=== PATIENT | male | born 1985 | race African-American/Black ===

== ENCOUNTER 2018-08-22 22:08 | Emergency (ER) | payer SELFPAY ==
[2018-08-22 22:15] VITALS: BP 132/79; PULSE 85; TEMP 98.4; BMI 34.0
--- NOTE | 2018-08-22 22:25 | PDOC ---
History of Present Illness - General Chief Complaint: Eye Problem Stated Complaint: EYE PROBLEM Time Seen by Provider: 08/22/18 22:18 History Source: Patient Exam Limitations: No Limitations - History of Present Illness Initial Comments: 08/22/18 22:35 CHIEF COMPLAINT: Eye pain HISTORY OF PRESENT ILLNESS: This is an otherwise healthy 33-year-old male who presents for evaluation of left eye redness, discharge, and photosensitivity after sleeping with a contact lens in the eye. He denies any change in visual acuity, any fever, or any other symptoms. Vital signs on arrival are unremarkable. REVIEW OF SYSTEMS: GENERAL/CONSTITUTIONAL: No fever or chills. No weakness. No weight change. HEAD, EYES, EARS, NOSE AND THROAT: See HPI. HEMATOLOGIC/LYMPHATIC: No anemia, easy bleeding, or history of blood clots. ALLERGIC/IMMUNOLOGIC: No hives or skin allergy. No latex allergy. PHYSICAL EXAM: GENERAL: The patient is awake, alert, and fully oriented, in no acute distress. ENT: Pupils equal, round and reactive to light, extraocular movements intact, sclera anicteric, conjunctiva injected with scant discharge. Neck supple. LUNGS: Clear to auscultation bilaterally. Normal excursion. No respiratory distress or use of accessory muscles. NEUROLOGICAL: Normal speech, normal gait. CN II-XII grossly intact. PSYCH: Normal mood, normal affect. SKIN: Warm, dry, normal turgor, no rashes or lesions noted. Past History - Past Medical History Allergies/Adverse Reactions: Allergies Allergy/AdvReac Type Severity Reaction Status Date / Time No Known Allergies Allergy Verified 08/22/18 22:15 Home Medications: Ambulatory Orders NK [No Known Home Medication] 11/09/16 CVA: No COPD: No - Immunization History Td Vaccination: No (unknown) Immunization Up to Date: Yes - Suicide/Smoking/Psychosocial Hx Smoking Status: No Smoking History: Never smoked Years of Tobacco Use: 0 Have you smoked in the past 12 months: No Number of Cigarettes Smoked Daily: 0 Cigars Per Day: 0 Information on smoking cessation initiated: No Hx Alcohol Use: No Drug/Substance Use Hx: No Substance Use Type: None *Physical Exam - Vital Signs Last Vital Signs Temp Pulse Resp BP Pulse Ox 98.4 F 85 17 132/79 100 08/22/18 22:13 08/22/18 22:13 08/22/18 22:13 08/22/18 22:13 08/22/18 22:13 Moderate Sedation - Procedure Monitoring Vital Signs: Procedure Monitoring Vital Signs Temperature 98.4 F 08/22/18 22:13 Pulse Rate 85 08/22/18 22:13 Respiratory Rate 17 08/22/18 22:13 Blood Pressure 132/79 08/22/18 22:13 O2 Sat by Pulse Oximetry (%) 100 08/22/18 22:13 Medical Decision Making - Medical Decision Making 08/22/18 22:38 A/P: 33-year-old male with likely conjunctivitis after sleeping with a contact lens in. Tetracaine instilled in the left eye and fluorescein dye applied. No corneal abrasion is visible under blue filter light. Will prescribe erythromycin ointment, advised warm compresses. 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 *DC/Admit/Observation/Transfer Diagnosis at time of Disposition: Conjunctivitis Qualifiers: Conjunctivitis type: acute Acute conjunctivitis type: bacterial Laterality: left Qualified Code(s): H10.32 - Unspecified acute conjunctivitis, left eye - Discharge Dispostion Disposition: HOME Condition at time of disposition: Stable Decision to Admit order: No - Referrals Referrals: Ladarius Levin [Primary Care Provider] - - Patient Instructions Printed Discharge Instructions: DI for Conjunctivitis Additional Instructions: -Apply erythromycin ointment to the lower lid every 6 hours without touching tube to lid -Apply warm compresses for 15 minutes 5 times a day -Follow up with ophthalmology if symptoms not improving -Return here for any new or concerning symptoms - Post Discharge Activity
[2018-08-22] MEDS ORDERED: ERYTHROMYCIN 0.5% OPHTHALMIC OINTMENT 3.5 GM TUBE OS ONE (22:33)
[2018-08-22] MEDS ORDERED: ERYTHROMYCIN 0.5% OPHTHALMIC OINTMENT 3.5 GM TUBE ONE (22:36)
== END 2018-08-22 22:42 | disposition home or self-care (01) ==
LOC: JERFT 22:08
DX: H10.32 Unspecified acute conjunctivitis, left eye (principal)
CPT/HCPCS: 99281-25

== ENCOUNTER 2020-01-05 14:39 | Emergency (ER) | payer OTHER ==
[2020-01-05 14:46] VITALS: BP 161/84; PULSE 99; TEMP 98.7; BMI 34.2
--- NOTE | 2020-01-05 14:48 | PDOC ---
Rapid Medical Evaluation Chief Complaint: Injury Time Seen by Provider: 01/05/20 14:46 Medical Evaluation: Allergies Allergy/AdvReac Type Severity Reaction Status Date / Time No Known Allergies Allergy Verified 08/22/18 22:15 Vital Signs Temp Pulse Resp BP Pulse Ox 98.7 F 99 H 18 161/84 100 01/05/20 14:43 01/05/20 14:43 01/05/20 14:43 01/05/20 14:43 01/05/20 14:43 01/05/20 14:47 CC: fell and landed on rt hand Exam: noted edema and tenderness over 4th and 5th mcp Plan: xray Discharge Disposition - Diagnosis Hand injury - Referrals - Patient Instructions - Post Discharge Activity
--- NOTE | 2020-01-05 15:33 | PDOC ---
History of Present Illness - General Chief Complaint: Injury Stated Complaint: RT HAND INJURY Time Seen by Provider: 01/05/20 14:46 History Source: Patient Exam Limitations: No Limitations - History of Present Illness Initial Comments: 01/05/20 15:28 Patient is a 34-year-old male with no past medical history presents to the ED with a right hand injury that he sustained about 45 minutes prior to arrival. The patient states that he was moving, carrying a couch and tripped, causing the couch to land on his right hand. He is right-hand dominant. He has pain over the dorsal, medial aspect of his hand. He denies any numbness or tingling. He has not taken anything for his symptoms. Past History - Medical History Allergies/Adverse Reactions: Allergies Allergy/AdvReac Type Severity Reaction Status Date / Time No Known Allergies Allergy Verified 08/22/18 22:15 Home Medications: Ambulatory Orders NK [No Known Home Medication] 11/09/16 CVA: No COPD: No Other medical history: DENIES - Immunization History Td Vaccination: No (unknown) Immunization Up to Date: Yes - Psycho-Social/Smoking History Smoking Status: No Smoking History: Never smoked Years of Tobacco Use: 0 Have you smoked in the past 12 months: No Number of Cigarettes Smoked Daily: 0 Cigars Per Day: 0 - Substance Abuse Hx (Audit-C & DAST Scrn) How often the patient has a drink containing alcohol: Never Score: In Men: 4 or > Positive; In Women: 3 or > Positive: 0 Screen Result (Pos requires Nsg. Audit-10AR): Negative In the last yr the pt used illegal drug/Rx for NonMed reason: No Score: Yes response is considered Positive: 0 Screen Result (Positive result requires Nsg. DAST-10): Negative Review of Systems - Review of Systems Comments:: 01/05/20 15:29 - Review of Systems Able to Perform ROS?: Yes Constitutional: No: Fever, Chills, Loss of Appetite, Night Sweats, Weakness HEENTM: No: Eye Pain, Vision changes, Ear Pain, Throat Pain, Throat Swelling, Mo uth Pain, Difficulty Swallowing Respiratory: No: Cough, Shortness of Breath, Wheezing, Sputum Production Cardiac (ROS): No: Chest Pain, Chest Tightness, Palpitations, Irregular Heart Beat, Edema ABD/GI: No: Nausea, Vomiting, Abdominal Pain, Diarrhea : No Dysuria, No Hematuria, No Frequency, No Urgency Musculoskeletal: No: Muscle Pain, Back Pain, Muscle Weakness, Neck Pain; positive: Right hand pain Integumentary: No: Lesions, Rash Neurological: No: Headache, Numbness, Tingling, Weakness, Speech Difficulties *Physical Exam - Vital Signs Last Vital Signs Temp Pulse Resp BP Pulse Ox 98.7 F 99 H 18 161/84 100 01/05/20 14:43 01/05/20 14:43 01/05/20 14:43 01/05/20 14:43 01/05/20 14:43 - Physical Exam 01/05/20 15:29 - Physical Exam General Appearance: Nourished, Appropriately Dressed, No Distress HEENT: EOMI, Normal Voice, Hearing Grossly Normal Neck: Supple, No Lymphadenopathy (R), No Lymphadenopathy (L), No Rigidity, No Decreased range of motion Respiratory/Chest: Lungs Clear, Normal Breath Sounds. No Respiratory Distress, No Accessory Muscle Use Cardiovascular: Regular Rhythm, Regular Rate, S1, S2 Gastrointestinal/Abdominal: Normal Bowel Sounds, Soft. Non-tender, No Guarding, No Rebound, No Rigidity Musculoskeletal: Normal Inspection. No Decreased Range of Motion; right hand with tenderness over the fifth metacarpal with swelling appreciated. No crepitus. Sensation intact distally. Deformity of the DIP of the small finger that patient states is from a previous injury. Sensation intact to the radial, median and ulnar nerve distributions. Brisk capillary refill. Extremity: Normal Capillary Refill, Normal Inspection Integumentary: Normal Color, Dry. 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 Plan: -Right hand x-ray shows a nondisplaced fifth metacarpal neck fracture -Right hand ulnar gutter splint placed -Hand surgery referral given -Cast/splint care discussed -Patient understands and agrees with this treatment plan he is stable for discharge. Discharge - Discharge Information Problems reviewed: Yes Clinical Impression/Diagnosis: Hand injury Qualifiers: Encounter type: initial encounter Laterality: right Qualified Code(s): S69.91XA - Unspecified injury of right wrist, hand and finger(s), initial encounter Boxer's fracture Qualifiers: Encounter type: initial encounter Fracture type: closed Qualified Code(s): S62.339A - Displaced fracture of neck of unspecified metacarpal bone, initial encounter for closed fracture Condition: Stable Disposition: HOME - Follow up/Referral Referrals: Jordan Huertas MD [Staff Physician] - Call tomorrow - Patient Discharge Instructions Patient Printed Discharge Instructions: DI for Boxer's Fracture Additional Instructions: Ice and elevate your right hand. Do not wet the splint at all. Do not remove the splint. Be sure to follow-up with hand surgery within the next few days for repeat evaluation. Referral has been given. Return to the emergency department for increased pain, numbness or tingling, or any other worsening symptoms. - Post Discharge Activity Work/Back to School Note: Back to Work
== END 2020-01-05 15:35 | disposition home or self-care (01) ==
LOC: JERFT 14:39
PROC: 2W3CX1Z Immobilization of Right Lower Arm using Splint (ICD-10-PCS; principal; 2020-01-05)
DX: S62.336A Displaced fracture of neck of fifth metacarpal bone, right hand, initial encounter for closed fracture (principal); W22.8XXA Striking against or struck by other objects, initial encounter
CPT/HCPCS: 73130-TC-RT-FY; 99283-25